=== PATIENT | male | born 2000 | race Caucasian/White ===

== ENCOUNTER 2020-04-13 22:06 | Emergency (ER) | payer SELFPAY ==
[~2020-04-13] VITALS: Ht 185.4 cm; Wt 81.6 kg
[2020-04-13 22:13] VITALS: BP_SYST 162
[2020-04-13 23:12] VITALS: BP_SYST 162
== END 2020-04-13 23:12 | disposition home or self-care (01) ==
LOC: SED 22:06
DX: S81.811A Laceration without foreign body, right lower leg, initial encounter (principal); W45.8XXA Other foreign body or object entering through skin, initial encounter; Y93.89 Activity, other specified; Y92.89 Other specified places as the place of occurrence of the external cause; Y99.8 Other external cause status
CPT/HCPCS: 99283